=== PATIENT | female | born 1995 | race African-American/Black ===

== ENCOUNTER 2021-10-29 21:29 | Emergency (ER) | payer OTHER, SELFPAY ==
[2021-10-29 22:12] LABS: #Monocytes 0.3 10x3/uL (0.0-1.1); #Neutrophils 7.9 10x3/uL (1.5-8.4); %Basophils 0.1 % (0.0-2.0); %Eosinophils 0.1 % (0.0-6.0); %Lymphocytes 9.7 % (18.0-47.0); %Monocytes 3.3 % (0.0-10.0); %Neutrophils 86.5 % (40.0-75.0); Hemoglobin 11.4 g/dL (12.0-15.5); Mean Corpuscular Hemoglobin 28.8 pg (27.0-33.0); Mean Corpuscular Volume 84.6 fl (81.6-98.3); Mean Platelet Volume 11.5 fl (7.4-10.4); Platelet Count 281 10x3/uL (150-450); RBC Distribution Width 13.7 % (11.5-14.5); Red Blood Cell (RBC) Count 3.96 10x6/uL (3.90-5.03); White Blood Cell (WBC) Count 9.1 10x3/uL (3.5-10.5)
[2021-10-29 22:26] LABS: ALT (SGPT) 9 U/L (8-55); AST (SGOT) 15 U/L (5-34); Albumin 4.8 g/dL (3.5-5.0); Alkaline Phosphatase 58 U/L (40-110); Anion Gap 18 mmol/L (10-20); BUN (Urea Nitrogen) 11 mg/dL (7.0-18.7); Bilirubin, Total 0.7 mg/dL (0.2-1.2); Calc. Creatinine Clearance 0 mL/min (70-130); Calcium 9.9 mg/dL (7.8-10.44); Carbon Dioxide 25 mmol/L (22-29); Chloride 101 mmol/L (98-107); Globulin 3.9 g/dL (2.4-3.5); Glucose 118 mg/dL (70-105); Potassium 3.8 mmol/L (3.5-5.1); Protein, Total 8.7 g/dL (6.0-8.3); Sodium 140 mmol/L (136-145)
[2021-10-29] MEDS ORDERED: Ondansetron PF 4 MG/2 ML Vial ONE (22:48)
== END 2021-10-30 00:36 | disposition home or self-care (01) ==
LOC: CSHERS 21:29
DX: E86.0 Dehydration (principal); R11.10 Vomiting, unspecified; D64.9 Anemia, unspecified
CPT/HCPCS: 80053; 85025; 96374; J2405

== ENCOUNTER 2022-05-09 08:12 | Emergency (ER) | payer OTHER ==
[2022-05-09] MEDS ORDERED: Ondansetron ODT 4 MG TAB ONE (08:53)
[2022-05-09] MEDS ORDERED: Ibuprofen 200 MG TAB ONE (08:54)
[2022-05-09 09:13] LABS: SARS-CoV-2 NAA Rapid Test Not Detected (NotDetected)
[2022-05-09] MEDS ORDERED: guaiFENesin/DM ER PO SCH (09:15)
== END 2022-05-09 10:00 | disposition home or self-care (01) ==
LOC: CSHERS 08:12
DX: J11.1 Influenza due to unidentified influenza virus with other respiratory manifestations (principal); B34.9 Viral infection, unspecified; Z20.822 Contact with and (suspected) exposure to COVID-19
CPT/HCPCS: 99283; Q0162

== ENCOUNTER 2023-03-21 00:12 | Emergency (ER) | payer OTHER ==
[2023-03-21 00:41] LABS: Bilirubin Neg (Negative); Blood, Urine 250 (Negative); Clarity Slightly Cloudy (Clear); Glucose, Urine (Dipstick) Normal (Negative); Ketone, Urine Negative (Negative); Leukocyte 500 (Negative); Nitrite Positive (Negative); Protein, Urine (Dipstick) 15 mg/dl (Neg-Trace); Specific Gravity, Urine 1.015 (1.005-1.030); Urobilinogen Normal mg/dL (Less than 2)
[2023-03-21 00:50] LABS: Pregnancy Test - Urine (BHCG) Negative (Negative); Pregu Control Background? CLEAR/WHITE (CLR/WHITE); Pregu Control Bar Appear? YES (CONTROL BAR); Specific Gravity 1.015 (1.002-1.036)
[2023-03-21 01:14] LABS: Bacteria/HPF 3+ HPF (None Seen); CAUTI Indications for Culture Dysuria,urgency,freq; Squamous Epithelial 0-3 HPF (0-3); Trichomonas/HPF 2+ HPF (None Seen); WBC/HPF Greater than 50 HPF (0-3)
[2023-03-21] MEDS ORDERED: Cefuroxime 250 MG TAB PO SCH (01:15)
[2023-03-21] MEDS ORDERED: Ketorolac Tromethamine 30 MG/ML VIAL ONE (01:15)
[2023-03-21 01:16] LABS: Urine Culture Reflex Yes Yes
== END 2023-03-21 01:22 | disposition home or self-care (01) ==
LOC: CSHERS 00:12
DX: N39.0 Urinary tract infection, site not specified (principal)
CPT/HCPCS: 81001; 81025; 87077; 87086; 87186; 96372; 99283; J1885

== ENCOUNTER 2023-04-12 07:49 | Emergency (ER) | payer OTHER | END 2023-04-12 09:11 | disposition home or self-care (01) | LOC: CSHERS 07:49 | DX: R11.0 Nausea (principal) | CPT/HCPCS: 36415; 84702; 99283 ==

== ENCOUNTER 2023-08-06 18:36 | Emergency (ER) | payer OTHER, SELFPAY ==
[2023-08-06 20:26] LABS: SARS-CoV-2 NAA Rapid Test Not Detected (NotDetected)
[2023-08-06] MEDS ORDERED: Naproxen 500 MG TAB ONE (20:56)
== END 2023-08-06 20:00 | disposition home or self-care (01) ==
LOC: CSHERS 18:36
DX: J11.1 Influenza due to unidentified influenza virus with other respiratory manifestations (principal)
CPT/HCPCS: 87081; 87430; 99284

== ENCOUNTER 2024-02-24 19:17 | Emergency (ER) | payer SELFPAY ==
[2024-02-24] MEDS ORDERED: Dexamethasone 10 MG/ML VIAL ONE (21:42)
[2024-02-24] MEDS ORDERED: Ondansetron ODT 4 MG TAB ONE (21:43)
[2024-02-24] MEDS ORDERED: Ibuprofen 200 MG TAB ONE (21:43)
[2024-02-24 22:01] LABS: Influenza A by NAA Not Detected (NotDetected); Influenza B by NAA Not Detected (NotDetected); SARS-CoV-2 NAA Rapid Test DETECTED (NotDetected)
== END 2024-02-24 22:30 | disposition home or self-care (01) ==
LOC: CSHERS 19:17
DX: U07.1 COVID-19 (principal)
CPT/HCPCS: 87081; 87430; 96372; J1100; Q0162